=== PATIENT | male | born 1955 | race Caucasian/White ===

== ENCOUNTER 2024-10-21 11:35 | Outpatient (CLI) | payer MEDICARE, SELFPAY ==
--- NOTE | ~2024-10-21 | PE_ITS ---
EXAMINATION: PET_PETPSMAST_PT DATE: 10/21/2024 13:55 INDICATION: Prostate cancer TECHNIQUE: 5.246 mCi of Illucix Ga-68([id number]) was administered i.v. Low dose computed francheska graphy (CT) images were acquired from the base of the brain to the base of the brain to the proximal thighs for attenuation correction and anatomic localization. Positron emission tomography (PET) image s were acquired in the same distribution beginning 85 minutes after injection. Images including fused PET/CT images were reconstructed in axial, coronal, and sagittal planes. Automated exposure control technique was employed. The dose-length product was 02758.20mGy-cm. COMPARISON: None FINDINGS: Head/neck: Typical pattern of symmetric physiologic increased activity in the lacrimal, parotid and submandibula r glands as well as along the mucosa of the nasal and oral cavities, pharynx and hypopharynx. No path ologically enlarged cervical lymphadenopathy or suspicious foci of increased uptake in the visualized head or neck. Chest: Mild bibasilar atelectasis. No pulmonary nodules, pneumonia, pulmonary edema or pleural effusion. Hea rt size is normal. Atherosclerotic coronary artery calcification. No pericardial effusion. Thoracic a maureen is normal in caliber No pathologically enlarged or PSMA avid thoracic lymphadenopathy. lymphaden opathy. Abdomen/pelvis/proximal thighs: Physiologic renal accumulation and excretion of activity in the kidneys, bladder and along portions o f ureters. Photopenic defect associated with a 7 cm low-attenuation exophytic cyst at the lower pole the right kidney. There are mild uptake in the posterior prostate with maximal SUV of 4.1 on the righ t and left and 3.9 on the right. Normal degree and slightly heterogenous pattern of increased uptake throughout the liver and spleen without radiologic correlate or dominant PSMA avid lesion. The gallbl adder, pancreas and bilateral adrenal glands are normal. Moderate uptake scattered throughout the bow els with typical duodenal and proximal jejunal predominance and without radiologic correlate, also li ida physiologic. Normal appendix. Small fat-containing right inguinal hernia. No other abnormal foci of increased uptake or pathologically enlarged lymphadenopathy in the abdomen, pelvis or proximal th ighs. Musculoskeletal: Severe cervical and lumbar spondylosis and moderate thoracic spondylosis. No suspicious lytic, blasti c or abnormally PSMA avid bone lesions. IMPRESSION: 1. Mild uptake in the posterior prostate, left slightly greater than right consistent with prostate c ancer. No lesions suspicious for metastatic disease. Reviewed, dictated and finalized at location B. IMPRESSION: 1. Mild uptake in the posterior prostate, left slightly greater than right cons istent with prostate cancer. No lesions suspicious for metastatic disease.
--- OUTSIDE RECORDS SUMMARY | 2024-10-21 13:18 | XMS_ITS | Encounter Summary ---
Author Organization [facility] Healthcare Address [address] [place] [address] Care Team Providers Care Yard Specialist Name Role Phone Julius Pelayo MD Primary Care Provider [phone] Austen Natarajan NP Unavailable [phone] Encounter Details Date Type Department Care Team (Late st Contact Info) Description 08/31/2024 Results Follow-Up [facility] Gastroenterology at [address] [place] [address] Constantino Booth MD [address] [place] [address] [address] [place] [address] Social History Tobacco Use Types Packs/Day Years Used Date Smoking Tobacco: Never Smokeless Tobacco: Never Alcohol Use Standard Drinks/Week Comments Yes 0 (1 standard drink = 0.6 oz pur e alcohol) AUDIT-C Answer Date Recorded Q1: How often do you have a drink containing alc ohol? Monthly or less 08/24/2024 Average Number of Drinks Not on file 025 Frequency of Binge Drinking Not on file 08/15 PHQ-2 Answer Date Recorded PHQ-2 Total Score (If total score is 3 or more points, staff should administer the PHQ-9) 0 08/05/2024 Personal Safety Answer Date Recorded Have you ever been in or are you currently in a harmful physical or emotional relationship or is someone making you feel afraid or unsafe? 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
--- OUTSIDE RECORDS SUMMARY | 2024-10-21 13:18 | XMS_ITS | Clinical Summary ---
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 Gender Identity Not on file Sexual Orientation Not on file Plan of Treatment Health Maintenance Due Date Last Done Comments Hepatitis C Virus (HCV) Screening 1955 TdaP Immunization 1955 Colonoscopy 2001 Colorectal Cancer Screening 2001 Cologuard 2006 Immunochemical Fecal Occult Blood 2006 Pneumococcal Immunization (5 0+ years) (1 of 1 - PCV) 2006 Zoster Immunization (1 of 2) 2006 PSA Discussion 2011 Influenza Immunization (#1) 2024 SARS-COV-2 Immunization ( - 2023-25 season) 2024 Respiratory Syncytial Virus (RSV) Immunization (Adult) (1 - 1-dose 75+ series) 2031 Hepatitis B Immunization Aged Out No longer eligible based on patient's age to complete this topic Meningococcal Immunization (ACWY) Aged Out No longer eligible based on patient's age to complete this topic Rotavirus Immunization Aged Out No lo nger eligible based on patient's age to complete this topic
--- OUTSIDE RECORDS SUMMARY | 2024-10-21 13:18 | XMS_ITS | Clinical Summary ---
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 Brush Assembler Name Role Phone Julius Pelayo MD Primary Care Provider [phone] Austen Natarajan NP Unavailable [phone] Allergies No known active allergies Medications rivaroxaban (Xarelto) 20 mg tablet TAKE 1 TABLET BY MOUTH EVERY DAY 90 tablet 3 02/03/2024 Active carvediloL (COREG) 25 mg tablet TAKE 1 TABLET BY MOUTH TWICE A DAY WITH FOOD 180 tablet 3 05/22/2024 Active atorvastatin (LIPITOR) 80 mg tablet TAKE 1 TABLET BY MOUTH EVERY DAY 90 tablet 3 07/10/2024 Active Entresto 97-103 mg tablet TAKE 1 TABLET BY MOUTH TWICE A DAY 60 tablet 11 08/11/2024 Active Active Problems Problem Noted Date Diagnosed Date Elevated prostate specific antigen (PSA) 025 S/P total knee arthroplasty, right 08/05/2024 Assessment & Plan (08/05/2024 8:35 AM DATABASE ADMINISTRATION MANAGER): Continues to improved on ROM and will follow response. Prostate cancer screening 08/05/2024 Assessment & Plan (08/05/2024 8:36 AM DATABASE ADMINISTRATION MANAGER): Updating PSA. Reviewed Prostate anatomy. Encounter for hearing examination 08/05/2024 Assessment & Plan (08/05/2024 8:37 AM DATABASE ADMINISTRATION MANAGER): COntinues with hearing aids. No acute chagnes. Focus of exam is preventative in nature. Reviewed immunizations, reivewed sun/skin cancer screening. Reviewed colon/prostate cancer screening. Reveiwed aerobic exercise targets and goal of 150min/week aerobic exercise and will montior response./ BMI 39.0-39.9,adult 08/05/2024 Assessment & Plan (08/05/2024 8:36 AM DATABASE ADMINISTRATION MANAGER): Encourage 150min/week aerobic exericse. Healthy food choices. Encounter for screening colonoscopy 2024 Arthritis of knee 06/12/2022 Encounter for pre-operative examination 06/06/20 Assessment & Plan (06/06/2022 10:01 AM DATABASE ADMINISTRATION MANAGER): Reviewed labs, and EKG. Patient cleared for upcoming surgery on 06/12/22. Cleared by cooper apprentice, Dr. Smith. Patient to hold xarelto x 2 days before surgery. Primary osteoarthritis of right knee 05/10/2022 Overview (05/10/2022): Added automatically from request for surgery [id number] Chronic atrial fibrillation 02/20/2022 Assessment & Plan (08/05/2024 8:35 AM DATABASE ADMINISTRATION MANAGER): Continues on xarelto and carvedilol and will monitor ersponse. Assessment & Plan (06/06/2022 10:02 AM DATABASE ADMINISTRATION MANAGER): Rate controlled. Continues BB and xarelto. Dilated cardiomyopathy 02/20/2022 Assessment & Plan (06/06/2022 10:03 AM DATABASE ADMINISTRATION MANAGER): Stable on current medication regimen. Following with cardiology. Coronary artery disease invo lving [place] coronary artery of [place] heart without angina pectoris 02/20/2022 Assessment & Plan (06/06/2022 10:03 AM DATABASE ADMINISTRATION MANAGER): Results for orders placed or performed in visit on 06/06/22 POCT lipid panel Result Value Ref Range Cholesterol, POC 100 mg/dL HDL, POC 30 mg/dL Triglycerides, POC 78 mg/dL LDL, Direct, POC 54.4 mg/dL Chol/HDL Ratio, POC 1.81 Non-HDL Cholesterol, POC 70 mg/dL Cholesterol Total, POC 100 mg/dL Denies any chest pain. Reviewed cholesterol with patient. Continue atorvastatin 80 mg daily. JIMBO on CPAP 02/20/2022 Assessment & Plan (08/05/2024 8:35 AM DATABASE ADMINISTRATION MANAGER): Continues to benefit from ngihtly positive pressure therapy. WIll continue to follow response. Assessment & Plan (06/06/2022 10:02 AM DATABASE ADMINISTRATION MANAGER): Nightly CPAP use. Hypertensive heart disease with heart failure Assessment & Plan (08/05/2024 8:36 AM DATABASE ADMINISTRATION MANAGER): COntinue on xarelto and entresto. No BOND. Normalization of ECho. NO side effects to entresto. Class 2 severe obesity due t o excess calories with serious comorbidity and body mass index (BMI) of 39.0 to 39.9 in adult 07/25/2021 Preoperative testing 06/13/2021 Overview (06/13/2021): Added automatically from request for surgery [id number] BOND (dyspnea on exertion) 06/13/2021 Overview (06/15/2021): Added automatically from request for surgery [id number] Hyperlipidemia 06/13/2021 Overview (06/15/2021): Added automatically from request for surgery [id number] Assessment & Plan (08/05/2024 8:35 AM DATABASE ADMINISTRATION MANAGER): Stable on high intenstiy statin therapy with atorvastatin. Abnormal glucose 06/01/2021 LV dysfunction 06/01/2021 Assessment & Plan (06/01/2021 9:08 AM DATABASE ADMINISTRATION MANAGER): Patient's symptoms are suspicious for angina and in the setting of LV dysfunction we need to definitively define coronary anatomy. I have initiated systolic CHF therapies and will check proBNP value as well as his electrocardiogram and metabolic panel. We discussed risks benefits and alternatives to coronary angiography, patient and his understand and is willing to proceed. I have discussed changing his lisinopril hydrochlorothiazide for his hypertension to Entresto escalating doses to 97/101 b.i.d. and have added carvedilol 12.5 mg b.i.d. to his medical regimen. He will take baby aspirin until his angiogram is completed. Hypertension 11/28/2013 Overview (10/20/2016): HYPERTENSION NOS Assessment & Plan (08/05/2024 8:35 AM DATABASE ADMINISTRATION MANAGER): Stable on carvedilol and entresto. No side effects noted to medication. Encounters Date Type Department Care Team Description 10/08/2024 9:45 AM CDT - 10/08/2024 10:45 AM CDT Surgery [facility] Operating Room [address] [place] [address] Alonzo Hensley MD URONAV GUIDED PROSTATE BIOPSY 10/08/2024 9:21 AM CDT Anesthesia Event [facility] Operating Room [address] [place] [address] Tr Graves MD Reynolds, Ethan Emerson, MD 10/08/2024 6:59 AM CDT - 10/08/2024 12:11 PM CDT Hospital Encounter [facility] Operating Room [address] [place] [address] Alonzo Hensley MD Elevated prostate specific antigen (PSA) Discharge Disposition: Discharge to home or self care 10/07/2024 8:15 AM CDT Office Visit [facility] [address] [place] [address] Marsha Chauhan NP Chronic atrial fibrillation (HCC) (Primary Dx); Coronary artery disease involving [place] coronary artery of [place] heart without angina pectoris; JIMBO on CPAP; Thoracic aortic aneurysm (TAA), unspecified part, unspecified whether ruptured 09/11/2024 7:58 AM DATABASE ADMINISTRATION MANAGER - 09/11/2024 11:59 PM DATABASE ADMINISTRATION MANAGER Hospital Encounter [facility] Imaging Center [address] [place] [address] Aneurysm of ascending aorta without rupture Discharge Disposition: Discharge to home or self care 09/11/2024 7:58 AM DATABASE ADMINISTRATION MANAGER - 09/11/2024 11:59 PM DATABASE ADMINISTRATION MANAGER Hospital Encounter [facility] Cardiology [address] [place] [id number] Chronic atrial fibrillation (HCC) Discharge Disposition: Discharge to home or self care 09/10/2024 Telephone [facility] [address] [place] [id number] Alyson, Tracee Titus. 08/31/2024 Results Follow-Up [facility] at [address] [place] [address] Constantino Booth MD 08/25/2024 9:30 AM DATABASE ADMINISTRATION MANAGER - 08/25/2024 10:00 AM DATABASE ADMINISTRATION MANAGER Surgery [address] [address] Constantino Booth MD COLON REMOVAL SNARE 08/25/2024 9:02 AM DATABASE ADMINISTRATION MANAGER Anesthesia Event [address] [address] Emeka Wang MD 08/25/2024 7:56 AM DATABASE ADMINISTRATION MANAGER - 08/25/2024 10:23 AM DATABASE ADMINISTRATION MANAGER Hospital Encounter [address] [address] Constantino Booth MD Encounter for screening colonoscopy Discharge Disposition: Discharge to home or self care 08/10/2024 Orders Only [facility] [address] [address] Julius Pelayo MD Elevated PSA (Primary Dx) 08/05/2024 8:35 AM DATABASE ADMINISTRATION MANAGER Lab [facility] Laboratory [address] [place] [phone] Prostate cancer screening 08/05/2024 8:00 AM DATABASE ADMINISTRATION MANAGER Office Visit [facility] [address] [address] Julius Pelayo MD Annual physical exam (Primary Dx); Prostate cancer screening; JIMBO on CPAP; Mixed hyperlipidemia; Primary hypertension; Chronic atrial fibrillation (HCC); S/P total knee arthroplasty, right; BMI 39.0-39.9,adult; Severe obesity (BMI 35.0-39.9) with comorbidity (HCC); Hypertensive heart disease with heart failure (HCC) 07/30/2024 8:10 AM DATABASE ADMINISTRATION MANAGER Lab [facility] [address] [place] [address] Encounter for hearing examination, unspecified whether abnormal findings from Last 3 Months Immunizations Immunization Administration Dates Next Due Influenza, Quadrivalent, Hig h Dose, Preservative Free, Intrr 06/06/2022 Influenza, Unspecified 06/06/2022(Deferr ed: Patient Refused),07/25/2021(Deferred: Patient Refused),04/14/2021(Deferred: Patient Refused),03/15/2021(Deferred: Patient Refused),07/13/2020(Deferred: Patient Refused),07/15/2019(Deferred: Patient Refused),07/13/2019(Deferred: Patient Refused),07/15/2018(Deferred: Patient Refused) Moderna SARS-CoV-2 Monovalen t Vaccination (12+ YRS) 07/04/2021 Tdap 04/18/2018,04/08/2012 Surgical History Surgery Date Site/Laterality Comments CARDIAC CATHETERIZATION KNEE ARTHROSCOPY Right COLONOSCOPY 08/25/2024 1st Medical History Medical History Date Comments Hypertension Hypertension Arrhythmia A fib Sleep apnea Hyperlipidemia Family History Medical History Relation Name Comments Heart attack Father Heart disease Father Hypertension Father Other Father Diabetes type 2 , HTN.; Peripheral vascular disease Father Peripheral vascular disease; Cancer Mother Heart disease Mother Relation Name Status Comments Father Mother Alive Social History Tobacco Use Types Packs/Day Years Used Date Smoking Tobacco: Never Smokeless Tobacco: Never Tobacco Cessation:Counseling Given: Not Answered Alcohol Use Standard Drinks/Week Comments Yes 0 (1 standard drink = 0.6 oz pur e alcohol) AUDIT-C Answer Date Recorded Q1: How often do you have a drink containing alcohol? Monthly or less 10/01/2024 Q2: How many drinks containi ng alcohol do you have on a typical day when you are drinking? Patient does not drink Frequency of Binge Drinking Not on file 09/13 PHQ-2 Answer Date Recorded PHQ-2 Total Score (If total score is 3 or more points, staff should administer the PHQ-9) 0 08/05/2024 Personal Safety Answer Date Recorded Have you ever been in or are you currently in a harmful physical or emotional relationship or is someone making you feel afraid or unsafe? Denies 10/08/2024 Sex and Gender Information Value Date Recorded Sex Assigned at Not on file Legal Sex Male 2:00 PM DATABASE ADMINISTRATION MANAGER Gender Identity Not on file Sexual Orientation Not on file Obstetrics History Last Filed Vital Signs Vital Sign Reading Time Taken Comments Blood Pressure 149/89 10/08/2024 11:59 AM CDT Pulse 79 10/08/2024 11:59 AM CDT Temperature 35.7 C (96.3 F) 10/08/2024 11:59 AM CDT Respiratory Rate 20 10/08/2024 11:5 9 AM CDT Oxygen Saturation 100% 10/08/2024 11: 59 AM CDT Inhaled Oxygen Concentration - - Weight 127.1 kg (280 lb 3.3 oz) 10/08/2024 7:33 AM CDT Height 182.9 cm (6') 10/08/2024 7:33 AM CDT Body Mass Index 38 10/08/2024 7:33 AM CDT Plan of Treatment Health Maintenance Due Date Last Done Comments Hepatitis C Screening 1955 Hepatitis B Screening 1974 Pneumococcal vaccine 65+ (1 of 2 - PCV) 1975 Zoster Vaccine (1 of 2) 2006 Covid-19 Vaccine (4 - 2023-2 5 season) 2024 07/04/2021, 10/04/2020, 08/24/2020 Depression Screening 08/05/2025 08/05/2024, 08/02/2023, 07/30/2022, Additional history exists Well Visit 65+ 08/05/2025 08/05/2024, 07/15, 07/30/2022, Additional history exists Fall Risk Assessment 10/08/2025 10/08/2024, 08/05/2024, 08/02/2023, Additional history exists Prostate Cancer Screening-PSA 08/05/2026, 07/30/2023, 07/30/2022, Additional history exists DTaP/Tdap/Td Vaccine (3 - Td or Tdap) 04/18/2028 04/18/2018, 04/08/2012 Influenza Vaccine Discontinued 06/06/2022 Colon Cancer Screening-CT Colonography Discontinued 08/25/2024 Colon Cancer Screening-Colonoscopy Discontinued 08/25/2024 Colon Cancer Screening-DNA Stool Discontinued 08/25/19 Colon Cancer Screening-FIT Discontinued 08/25/2024 Colon Cancer Screening-Sigmoidoscopy Discontinued 08/25/2024 Medical Devices Implanted Type Area Vehicle And Equipment Cleaner Device Identifier Shelf Expiration Date Model / Serial / Lot TrackIF/[employer] [id number] Angio-Seal Evolution 6fr .035in Guidewire Bypass Tube Suture - [id number] Implanted:Qty: 1 on 06/16/2021 by Ko Smith MD at [facility] [employer] 12/12/2021 [id number] / / [id number] [employer] Cement Bone Simplex Gentamicin High Viscosity 40gm 6195-1-001 - [id number] Implanted:Qty: 1 on 06/12/2022 by Ronald Back MD at [facility] Right: Knee [employer] [id number] 10/13/2023 6195-1-001 / / [id number] [employer] Attune S+ Cement Fix Bearing Knee 8 Baseplate Tibial [id number] - [id number] Implanted:Qty: 1 on 06/12/2022 by Ronald Back MD at [facility] Right: Knee [employer] [id number] 02/12/2032 [id number] / / [id number] [employer] Attune Cruciate Retain Cementless Knee Right 9 Component Femoral [id number] - [id number] Implanted:Qty: 1 on 06/12/2022 by Ronald Back MD at [facility] Right: Knee [employer] [id number] 08/14/2029 [id number] / / [id number] [employer] Attune 10mm Cruciate Retaining Fix Bearing Knee 9 Insert Tibial [id number] - [id number] Implanted:Qty: 1 on 06/12/2022 by Ronald Back MD at [facility] Right: Knee [employer] [id number] 08/14/2022 [id number] / / [id number] Procedures Procedure Name Priority Date/Time Associated Diagnosis Comments SURGICAL PATHOLOGY Routine 10/08/2024 10 :13 AM CDT Elevated prostate specific antigen (PSA) URONAV GUIDED PROSTATE BIOPSY 10/08/2024 9:21 AM CDT Elevated prostate specific antigen (PSA) ECG 12-LEAD STAT 10/08/2024 7:[address] CHEST WO CONTRAST Schedule Routine, Read Routine (OP Routine) 09/11/2024 9:03 AM DATABASE ADMINISTRATION MANAGER Aneurysm of ascending aorta without rupture TRANSTHORACIC ECHO (TTE) COMPLETE W DOPPLER/CF WO CONTRAST Routine 09/11/2024 8:42 AM DATABASE ADMINISTRATION MANAGER Chronic atrial fibrillation (HCC) SURGICAL PATHOLOGY STAT 08/25/2024 3: 00 PM DATABASE ADMINISTRATION MANAGER Encounter for screening colonoscopy COLON REMOVAL SNARE 08/25/2024 8 :57 AM DATABASE ADMINISTRATION MANAGER Encounter for screening colonoscopy COLONOSCOPY 08/25/2024 8:12 AM DATABASE ADMINISTRATION MANAGER PSA SCREEN Routine 08/05/2024 8:34 AM DATABASE ADMINISTRATION MANAGER Prostate cancer screening EGFR Routine 07/30/2024 8:17 AM DATABASE ADMINISTRATION MANAGER Encounter for hearing examination, unspecified whether abnormal findings DIFFERENTIAL AUTO Routine 07/30/2024 8:1 7 AM DATABASE ADMINISTRATION MANAGER Encounter for hearing examination, unspecified whether abnormal findings CBC WITH AUTO DIFFERENTIAL Routine 07/30/2024 8:17 AM DATABASE ADMINISTRATION MANAGER Encounter for hearing examination, unspecified whether abnormal findings COMPREHENSIVE METABOLIC PANEL Routine 07/30/2024 8:17 AM DATABASE ADMINISTRATION MANAGER Encounter for hearing examination, unspecified whether abnormal findings LIPID PANEL Routine 07/30/2024 8:17 AM DATABASE ADMINISTRATION MANAGER Encounter for hearing examination, unspecified whether abnormal findings from Last 3 Months Results * Surgical pathology (10/08/2024 10:13 AM CDT) Tissue specimen (specimen) (Prostate, Needle Biopsy) 10/08/2024 9:03 AM CDT Tissue specimen (specimen) (Prostate, Needle Biopsy) 10/08/2024 9:03 AM CDT Tissue specimen (specimen) (Prostate, Needle Biopsy) 10/08/2024 9:03 AM CDT Tissue specimen (specimen) (Prostate, Needle Biopsy) 10/08/2024 9:03 AM CDT Tissue specimen (specimen) (Prostate, Needle Biopsy) 10/08/2024 9:03 AM CDT Tissue specimen (specimen) (Prostate, Needle Biopsy) 10/08/2024 9:03 AM CDT Tissue specimen (specimen) (Prostate, Needle Biopsy) 10/08/2024 9:03 AM CDT Tissue specimen (specimen) (Prostate, Needle Biopsy) 10/08/2024 9:03 AM CDT Tissue specimen (specimen) (Prostate, Needle Biopsy) 10/08/2024 9:03 AM CDT Tissue specimen (specimen) (Prostate, Needle Biopsy) 10/08/2024 9:03 AM CDT Tissue specimen (specimen) (Prostate, Needle Biopsy) 10/08/2024 9:03 AM CDT Tissue specimen (specimen) (Prostate, Needle Biopsy) 10/08/2024 9:03 AM CDT Tissue specimen (specimen) (Prostate, Needle Biopsy) 10/08/2024 9:06 AM CDT Tissue specimen (specimen) (Prostate, Needle Biopsy) 10/08/2024 9:07 AM CDT Narrative PATHOLOGY [facility] ([facility]) - 10/13/2024 8:53 AM CDT EPIC results best viewed via link to PDF [facility] Department of Pathology [address] [place], [place] [id number] Note to Patients: This report may contain a detailed description of human tissue sent by a health care provider to the laboratory for pathologic evaluation. The content of this report is essential for diagnosis and may provide important critical findings. This information may be unfamiliar to patients to review without a medical professional present. It is advised that the patient review this report in the presence of a health care provider who can answer questions and explain the details. Final Report Patient Name: RAO SANCHEZ Address: [address] [place] [id number] Gender: M : 1955 (Age: 69) Service: Surgery Location: [facility] Hospital #: [id number] Patient Type: [facility] Taken: 10/08/2024 Received: 10/09/2024 Accessioned: 10/09/2024 Reported: 10/13/2024 Physician(s):Alonzo Hensley M.D. Diagnosis: A. Prostate, right lateral base, biopsy: - Focal atypical glands. B. Prostate, right medial base, biopsy: - Adenocarcinoma, Galt score 7 (3+4), 10% Pattern 4, Grade group 2, involving 1 of 1 core, measuring 4 mm in combined dimension, 30% of total biopsy tissue. C. Prostate, right lateral mid, biopsy: - Benign prostatic tissue. D. Prostate, right medial mid, biopsy: - Adenocarcinoma, Galt score 6 (3+3), Grade group 1, involving 1 of 2 cores, measuring 2 mm in combined dimension, 10% of total biopsy tissue. E. Prostate, right lateral apex, biopsy: - Adenocarcinoma, Galt score 7 (3+4), 10% Pattern 4, Grade group 2, involving 2 of 2 cores, measuring 6 mm in combined dimension, 30% of total biopsy tissue. F. Prostate, right medial apex, biopsy: - Adenocarcinoma, Galt score 7 (3+4), 10% Pattern 4, Grade group 2, involving 1 of 1 core, measuring 4 mm in combined dimension, 40% of total biopsy tissue. G. Prostate, left lateral base, biopsy: - Benign prostatic tissue. H. Prostate, left medial base, biopsy: - Adenocarcinoma, Galt score 7 (4+3), 70% Pattern 4, Grade group 3, involving 1 of 1 core, measuring 2 mm in combined dimension, 15% of total biopsy tissue. I. Prostate, left lateral mid, biopsy: - Adenocarcinoma, Amelie score 7 (4+3), 70% Pattern 4, Grade group 3, involving 1 of 1 core, measuring 1 mm in combined dimension, 10% of total biopsy tissue. J. Prostate, left medial mid, biopsy: - Adenocarcinoma, Amelie score 6 (3+3), Grade group 1, involving 1 of 1 core, measuring 1 mm in combined dimension, 10% of total biopsy tissue. K. Prostate, left lateral apex, biopsy: - Adenocarcinoma, Galt score 6 (3+3), Grade group 1, involving 1 of 1 core, measuring 1 mm in combined dimension, 10% of total biopsy tissue. L. Prostate, left medial apex, biopsy: - Adenocarcinoma, Amelie score 7 (3+4), 40% Pattern 4, Grade group 2, involving 1 of 1 core, measuring 5 mm in combined dimension, 50% of total biopsy tissue. M. Prostate, region of interest #1, biopsy: - Benign prostatic tissue. N. Prostate, region of interest #2, biopsy: - Adenocarcinoma, Amelie score 7 (4+3), 60% Pattern 4, Grade group 3, involving 3 of 5 cores, measuring 6 mm in combined dimension, 20% of total biopsy tissue. Chaitanya Burrell M.D. Report Electronically Reviewed and Signed Out By Chaitanya Burrell M.D. 10/13/2024 08:53:45 Specimen(s) Received: A: Right lateral base B: Right medial base C: Right lateral mid D: Right medial mid E: Right lateral apex F: Right medial apex G: Left lateral base H: Left medial base I: Left lateral mid J: Left medial mid K: Left lateral apex L: Left medial apex M: Prostate biopsy - region of interest one N: Prostate biopsy - region of interest two Microscopic Description: In order to further assess for invasive carcinoma, a PIN4 immunohistochemical stain was performed with adequate controls on blocks A, B, D, E, F, K, M, and N and shows loss of the myoepithelial cell layer with overexpression of AMACR in the areas of invasive carcinoma. Clinical History: Elevated PSA. Uronav guided prostate biopsy. Gross Description: The specimen is submitted in fourteen containers labeled RAO SANCHEZ . A. The first container is labeled right lateral base . Received is a rodriguez needle core, 1.2 cm in length, submitted as A. B. The second container is labeled right medial base . Received is a rodriguez needle core, 1.6 cm in length, submitted as B. C. The third container is labeled right lateral mid . Received is a rodriguez needle core, 1.4 cm in length, submitted as C. D. The fourth container is labeled right medial mid . Received are 2 pale needle cores, 1.1 and 1.6 cm in length, submitted as D. E. The fifth container is labeled right lateral apex . Received are 2 rodriguez needle cores, 1.1 and 1.2 cm in length by 0.1 cm in diameter, submitted as E. F. The sixth container is labeled right medial apex . Received is a rodriguez needle core, 1.5 cm in length, submitted as F. G. The seventh container is labeled left lateral base . Received is a rodriguez needle core, 2.3 cm in length, submitted as G. H. The eighth container is labeled left medial base . Received is a pale needle core, 2.1 cm in length, submitted as H. I. The ninth container is labeled left lateral mid . Received is a rodriguez needle core, 1.1 cm in length, submitted as I. J. The tenth container is labeled left medial mid . Received is a rodriguez needle core, 1.2 cm in length, submitted as J. K. The eleventh container is labeled left lateral apex . Received is a pale needle core, 0.8 cm in length, submitted as K. L. The twelfth container is labeled left medial apex . Received is a rodriguez needle core, 2.0 cm in length, submitted as L. M. The thirteenth container is labeled prostate biopsy-region of interest 1 . Received are four rodriguez needle cores, 1.2-1.9 cm in length, submitted as M. N. The fourteenth container is labeled prostate biopsy-region of interest 2 . Received are 5 needle cores, 1.9-2.7 cm in length, submitted as N. Elliott Cunningham/Estefani Cruz M.D. REPORT IMAGES AND SCANNED DOCUMENTS, IF INCLUDED, ONLY VIEWABLE IN PDF VERSION OF REPORT The performance characteristics of some immunohistochemical stains, fluorescence in-situ hybridization tests and immunophenotyping by flow cytometry cited in this report (if any) were determined by the Surgical Pathology Department at [facility] as part of an ongoing supplier quality engineering manager program and in compliance with federally mandated regulations drawn from the Clinical Laboratory Improvement Act of 1988 (CLIA '88). Some of these tests rely on the use of analyte specific reagents and are subject to specific labeling requirements by the US Food and Drug Administration. Such diagnostic tests may only be performed in a facility that is certified by the Department of Health and Human Services as a high complexity laboratory under CLIA '88. The FDA has determined that such clearance or approval is not necessary. This test is used for clinical purposes. It should not be regarded as investigational or for research. Nevertheless, federal rules concerning the medical use of analyte specific reagents require that the following disclaimer be attached to the report: This test was developed and its performance characteristics determined by the Surgical Pathology Department [facility]. It has not been cleared or approved by the U. S. Food and Drug Administration. Note for decalcified specimens: This assay has not been validated on decalcified tissues. Results should be interpreted with caution given the possibility of false negativity on decalcified specimens Alonzo Hensley MD LAB PATHOLOGY ORDERA BLES Final Result PATHOLOGY [facility] ([place]) [address] [place] [address] * CT Chest WO Contrast (09/11/2024 9:03 AM DATABASE ADMINISTRATION MANAGER) Anatomical Region Laterality Modality Body N/A Computed Tomogra phy 09/16/2024 2:09 AM DATABASE ADMINISTRATION MANAGER Narrative 09/16/2024 2:24 AM DATABASE ADMINISTRATION MANAGER EXAM DESCRIPTION: CT CHEST WO CONTRAST REASON FOR STUDY: Aortic aneurysm suspected Follow up aortic aneurysm, no current complaints, non smoker TECHNIQUE: CT scan of the chest performed without intravenous contrast using helical scanning technique. Reconstructed coronal and sagittal MPR images reviewed. All images stored on PACS. Automated exposure control was used as a dose optimization technique for this examination. COMPARISON: 09/04/2023 FINDINGS: The sensitivity for detection of solid visceral lesions is diminished without the use of intravenous contrast. LUNGS: No suspicious nodules or masses. No pneumonia. Unchanged 0.4 cm left lower lobe pulmonary nodule (image 53). No new suspicious pulmonary nodules. PLEURA: No effusion. No pneumothorax. MEDIASTINUM/YARITZA: No identified masses or abnormal nodes. HEART: Heart size is normal with no pericardial effusion. CORONARY ARTERY CALCIFICATION: Moderate to severe calcified athero scleroses of the coronary arteries compatible multi-vessel coronary artery disease. VASCULATURE: Unchanged, 4.1 cm minimally aneurysmal ascending thoracic aortic aneurysm. Mild calcified athero scleroses of the thoracic aorta. The descending thoracic aorta is tortuous. AXILLA: No lymphadenopathy. Unchanged prominent bilateral axillary lymph nodes, likely reactive. CHEST WALL: Interval increased right posterior chest wall subcutaneous soft tissue density (image 58) measures 0.8 cm, previously 0.5 cm. Unchanged right posterolateral subcutaneous chest wall fat containing mass measuring 8.6 x 3.0 cm, likely a benign lipoma. HARDWARE/LINES/TUBES: None. UPPER ABDOMEN: No significant abnormality. MUSCULOSKELETAL: No significant abnormality. OTHER: No other significant abnormality. IMPRESSION: Unchanged, 4.1 cm minimally aneurysmal ascending thoracic aortic aneurysm. Unchanged, 0.4 cm left lower lobe solid noncalcified pulmonary nodule, likely benign. Interval increased right posterior chest wall subcutaneous soft tissue density measures 0.8 cm, previously 0.5 cm, possibly enlarging sebaceous cyst. Recommend clinical correlation. Follow-up ultrasound may prove helpful for further evaluation if clinically desired. Unchanged, right posterolateral subcutaneous chest wall fat containing mass measuring 8.6 x 3.0 cm, likely a benign lipoma. THIS IS AN ELECTRONICALLY VERIFIED FINAL REPORT 09/16/2024 2:24 AM - Electronically signed by Michael Mabry M.D. BB: YTLER Report ID: [id number] Reading Location: [place] [address] Procedure Note Michael Mabry MD PhD - 09/16/2024 EXAM DESCRIPTION: CT CHEST WO CONTRAST REASON FOR STUDY: Aortic aneurysm suspected Follow up aortic aneurysm, no current complaints, non smoker TECHNIQUE: CT scan of the chest performed without intravenous contrastusing helical scanning technique. Reconstructed coronal and sagittal MPR images reviewed. All images stored on PACS. Automated exposure control was usedas a dose optimization technique for this examination. COMPARISON: 09/04/2023 FINDINGS: The sensitivity for detection of solid visceral lesions is diminishedwithout the use of intravenous contrast. LUNGS: No suspicious nodules or masses. No pneumonia. Unchanged 0.4 cm left lower lobe pulmonary nodule (image 53). No new suspicious pulmonary nodules. PLEURA: No effusion. No pneumothorax. MEDIASTINUM/YARITZA: No identified masses or abnormal nodes. HEART: Heart size is normal with no pericardial effusion. CORONARY ARTERY CALCIFICATION: Moderate to severe calcified atheroscleroses of the coronary arteries compatible multi-vessel coronary artery disease. VASCULATURE: Unchanged, 4.1 cm minimally aneurysmal ascending thoracic aortic aneurysm. Mild calcified athero scleroses of the thoracic aorta.The descending thoracic aorta is tortuous. AXILLA: No lymphadenopathy. Unchanged prominent bilateral axillarylymph nodes, likely reactive. CHEST WALL: Interval increased right posterior chest wall subcutaneoussoft tissue density (image 58) measures 0.8 cm, previously 0.5 cm. Unchangedright posterolateral subcutaneous chest wall fat containing mass measuring 8.6 x3.0 cm, likely a benign lipoma. HARDWARE/LINES/TUBES: None. UPPER ABDOMEN: No significant abnormality. MUSCULOSKELETAL: No significant abnormality. OTHER: No other significant abnormality. IMPRESSION: Unchanged, 4.1 cm minimally aneurysmal ascending thoracic aorticaneurysm. Unchanged, 0.4 cm left lower lobe solid noncalcified pulmonary nodule,likely benign. Interval increased right posterior chest wall subcutaneous soft tissue density measures 0.8 cm, previously 0.5 cm, possibly enlarging sebaceouscyst. Recommend clinical correlation. Follow-up ultrasound may prove helpfulfor further evaluation if clinically desired. Unchanged, right posterolateral subcutaneous chest wall fat containingmass measuring 8.6 x 3.0 cm, likely a benign lipoma. THIS IS AN ELECTRONICALLY VERIFIED FINAL REPORT 09/16/2024 2:24 AM - Electronically signed by Michael Mabry M.D. BB: TYLER Report ID: [id number] Reading Location: [id number] us Ko Smith MD IMG CT PROCEDURES Final Result * TRANSTHORACIC ECHO (TTE) COMPLETE W DOPPLER/CF WO CONTRAST (09/11/2024 8:42 AM DATABASE ADMINISTRATION MANAGER) LV EF 70-75 % CONS SCIMAGE Anatomical Region Laterality Modality Ultrasound 09/11/2024 8:10 AM DATABASE ADMINISTRATION MANAGER Narrative 09/11/2024 11:22 AM DATABASE ADMINISTRATION MANAGER [address] [address] Echocardiogram Report Patient Name: RAO SANCHEZ : 1955 Study Date: 09/11/2024 8:10:43 AM Gender: M Tech: IMPROVEMENT COORDINATOR Location: Echo Lab 1 Ref Provider: KO SMITH Height(Cm): 183 BSA: 2.54 Weight(Kg): 127 Quality: Adequate Order Provider: KO SMITH PROCEDURES: Echocardiographic Report: Transthoracic echocardiogram with complete 2D, M-Mode, and color Doppler examination. INDICATIONS: I48.20 Chronic atrial fibrillation, unspecified. MEASUREMENTS: 2D/MM Value Range Doppler Value Range EF Teich MM 52.0 % [ 52.0 - 72.0 ] ARYAN Vmax 2.42 cm2 Estimated EF 70-75 % AV Mean PG 4 mmHg LVIDd MM 3.40 cm [ 4.20 - 5.80 ] AV Peak Ubaldo 1.34 m/s [ 1.00 - 1.70 ] LVIDs MM 2.50 cm [ 2.50 - 4.00 ] AV VTI 26.67 cm LVPWd MM 1.40 cm [ 0.60 - 1.00 ] LVOT Diam 2.27 cm IVSd MM 1.30 cm [ 0.60 - 1.00 ] LVOT Peak Ubaldo 0.81 m/s [ 0.70 - 1.10 ] LA Dimension MM 2.93 cm [ 3.00 - 4.00 ] LVOT VTI 15.62 cm AoR Diam MM 3.13 cm [ 3.10 - 3.70 ] MV E Peak Ubaldo 0.91 m/s [ 0.60 - 1.30 ] ACS MM 2.14 cm [ 1.50 - 2.60 ] MV A Peak Ubaldo 0.33 m/s [ 1.00 - 1.20 ] MV Decel Time 114 msec [ 104 - 258 ] PV Peak Ubaldo 0.60 m/s [ 0.40 - 0.80 ] TR Peak Ubaldo 2.45 m/s [ 1.00 - 2.80 ] TR Peak PG 24 mmHg E` 0.12 m/s 2D/MM Value Range Doppler Value Range - FINDINGS: Atrial Septum: Normal atrial septum. Left Ventricle: Mild concentric left ventricular hypertrophy. Normal global left ventricular systolic function. Ejection Fraction is estimated to be 70-75 %. Left Atrium: There is mild enlargement of left atrium. Right Ventricle: Normal right ventricular size. Normal right ventricular systolic function. Right Atrium: There is mild enlargement of right atrium. Aortic Valve: Normal structure of the aortic valve. Mitral Valve: Mild mitral valve regurgitation. Pulmonic Valve: Normal structure of the pulmonic valve. Tricuspid Valve: Normal right ventricular systolic pressure. Estimated peak RVSP is 35 mmHg. Mild tricuspid regurgitation. Pericardium: Normal pericardium with no significant pericardial effusion. Aorta: Normal aortic root. Sinus of Valsalva is normal. Aortic arch is normal. Descending aorta is normal. IVC: Normal size and normal respiratory collapse consistent with normal right atrial pressure (<5 mmHg). Pulmonary Artery: Normal pulmonary artery size. CONCLUSIONS: Mild concentric left ventricular hypertrophy. Normal global left ventricular systolic function. Ejection Fraction is estimated to be 70-75 %. There is mild enlargement of left atrium. There is mild enlargement of right atrium. Mild mitral valve regurgitation. Normal right ventricular systolic pressure. Estimated peak RVSP is 35 mmHg. Mild tricuspid regurgitation . Atrial fibrillation. Technically difficult study with suboptimal views. Electronically Signed By: Ko Smith MD 09/11/2024 11:22:09 AM DATABASE ADMINISTRATION MANAGER Procedure Note Ko Smith MD - 09/11/[address] [address] Echocardiogram Report Patient Name: RAO SANCHEZ : 1955 Study Date: 09/11/2024 8:10:43 AM Gender: M Tech: IMPROVEMENT COORDINATOR Location: Echo Lab 1 Ref Provider: KO SMITH Height(Cm): 183 BSA: 2.54 Weight(Kg): 127 Quality: Adequate Order Provider: KO SMITH PROCEDURES: Echocardiographic Report: Transthoracic echocardiogram with complete 2D, M-Mode, and color Dopplerexamination. INDICATIONS: I48.20 Chronic atrial fibrillation, unspecified. MEASUREMENTS: 2D/MM Value Range Doppler ValueRange EF Teich MM 52.0 % [ 52.0 - 72.0 ] ARYAN Vmax 2.42cm2 Estimated EF 70-75 % AV Mean PG 4 mmHg LVIDd MM 3.40 cm [ 4.20 - 5.80 ] AV Peak Ubaldo 1.34 m/s[ 1.00 - 1.70 ] LVIDs MM 2.50 cm [ 2.50 - 4.00 ] AV VTI 26.67cm LVPWd MM 1.40 cm [ 0.60 - 1.00 ] LVOT Diam 2.27cm IVSd MM 1.30 cm [ 0.60 - 1.00 ] LVOT Peak Ubaldo 0.81 m/s[ 0.70 - 1.10 ] LA Dimension MM 2.93 cm [ 3.00 - 4.00 ] LVOT VTI 15.62cm AoR Diam MM 3.13 cm [ 3.10 - 3.70 ] MV E Peak Ubaldo 0.91 m/s[ 0.60 - 1.30 ] ACS MM 2.14 cm [ 1.50 - 2.60 ] MV A Peak Ubaldo 0.33 m/s[ 1.00 - 1.20 ] MV Decel Time 114 msec [ 104 - 258 ] PV Peak Ubaldo 0.60 m/s [ 0.40 - 0.80 ] TR Peak Ubaldo 2.45 m/s [ 1.00 - 2.80 ] TR Peak PG 24 mmHg E` 0.12 m/s 2D/MM Value Range Doppler ValueRange - FINDINGS: Atrial Septum: Normal atrial septum. Left Ventricle: Mild concentric left ventricular hypertrophy. Normal global leftventricular systolic function. Ejection Fraction is estimated to be 70-75 %. Left Atrium: There is mild enlargement of left atrium. Right Ventricle: Normal right ventricular size. Normal right ventricular systolicfunction. Right Atrium: There is mild enlargement of right atrium. Aortic Valve: Normal structure of the aortic valve. Mitral Valve: Mild mitral valve regurgitation. Pulmonic Valve: Normal structure of the pulmonic valve. Tricuspid Valve: Normal right ventricular systolic pressure. Estimated peak RVSP is 35mmHg. Mild tricuspid regurgitation. Pericardium: Normal pericardium with no significant pericardial effusion. Aorta: Normal aortic root. Sinus of Valsalva is normal. Aortic arch is normal.Descending aorta is normal. IVC: Normal size and normal respiratory collapse consistent with normal rightatrial pressure (<5 mmHg). Pulmonary Artery: Normal pulmonary artery size. CONCLUSIONS: Mild concentric left ventricular hypertrophy. Normal global leftventricular systolic function. Ejection Fraction is estimated to be 70-75 %. There is mild enlargement of left atrium. There is mild enlargement of right atrium. Mild mitral valve regurgitation. Normal right ventricular systolic pressure. Estimated peak RVSP is 35mmHg. Mild tricuspid regurgitation . Atrial fibrillation. Technically difficult study with suboptimal views. Electronically Signed By: Ko Smith MD 09/11/2024 11:22:09 AM DATABASE ADMINISTRATION MANAGER Ko Smith MD CV ECHO PROCEDURES Final Result * Surgical pathology (08/25/2024 3:00 PM DATABASE ADMINISTRATION MANAGER) Tissue specimen (specimen) (Polyp(s), colon/colorectal, esophageal, gastric) 08/25/2024 9:23 AM DATABASE ADMINISTRATION MANAGER Narrative PATHOLOGY [facility] ([place]) - 08/26/2024 1:44 PM DATABASE ADMINISTRATION MANAGER EPIC results best viewed via link to PDF [facility] Department of Pathology [address] [place], [place] [id number] Note to Patients: This report may contain a detailed description of human tissue sent by a health care provider to the laboratory for pathologic evaluation. The content of this report is essential for diagnosis and may provide important critical findings. This information may be unfamiliar to patients to review without a medical professional present. It is advised that the patient review this report in the presence of a health care provider who can answer questions and explain the details. Final Report Patient Name: RAO SANCHEZ Address: [address] [place] [address] [address] [place] [id number] Gender: M : 1955 (Age: 69) Service: Gastro Location: [facility] Hospital #: [id number] Patient Type: [facility] Taken: 08/25/2024 Received: 08/25/2024 Accessioned: 08/25/2024 Reported: 08/26/2024 Physician(s):Dr. Constantino Booth M.D. Diagnosis: Sigmoid colon polyp x3, biopsy: - Tubular adenoma x2; negative for high-grade dysplasia. - Hyperplastic polyp x1. Chaitanya Burrell M.D. Report Electronically Reviewed and Signed Out By Chaitanya Burrell M.D. 08/26/2024 13:44:10 Specimen(s) Received: A: Sigmoid colon polyps Microscopic Description: Sections show a tubular adenoma x2 and a hyperplastic polyp x1. There is no evidence of high-grade dysplasia or invasive carcinoma. Clinical History: Screening colonoscopy. Gross Description: The specimen is submitted in a single formalin filled container labeled RAO SANCHEZ and sigmoid colon polyps . It is 3 fragments of rodriguez tissue between 3 and 4 mm. All in one cassette. Dee Beauchamp R.N., P.A./Estefani Cruz M.D. REPORT IMAGES AND SCANNED DOCUMENTS, IF INCLUDED, ONLY VIEWABLE IN PDF VERSION OF REPORT The performance characteristics of some immunohistochemical stains, fluorescence in-situ hybridization tests and immunophenotyping by flow cytometry cited in this report (if any) were determined by the Surgical Pathology Department at [facility] as part of an ongoing supplier quality engineering manager program and in compliance with federally mandated regulations drawn from the Clinical Laboratory Improvement Act of 1988 (CLIA '88). Some of these tests rely on the use of analyte specific reagents and are subject to specific labeling requirements by the US Food and Drug Administration. Such diagnostic tests may only be performed in a facility that is certified by the Department of Health and Human Services as a high complexity laboratory under CLIA '88. The FDA has determined that such clearance or approval is not necessary. This test is used for clinical purposes. It should not be regarded as investigational or for research. Nevertheless, federal rules concerning the medical use of analyte specific reagents require that the following disclaimer be attached to the report: This test was developed and its performance characteristics determined by the Surgical Pathology Department [facility]. It has not been cleared or approved by the U. S. Food and Drug Administration. Note for decalcified specimens: This assay has not been validated on decalcified tissues. Results should be interpreted with caution given the possibility of false negativity on decalcified specimens us Constantino Booth MD LAB PATHOLOGY ORDERABLES F inal Result PATHOLOGY [facility] [address] [place] [address] * Colonoscopy (08/25/2024 8:12 AM DATABASE ADMINISTRATION MANAGER) Anatomical Region Laterality Modality Other Narrative Procedure Note Constantino Booth MD - 08/25/2024 8:12 AM CST [facility] Patient Name: Rao Sanchez Procedure Date: 08/25/2024 8:12 AM Date of : 1955 Admit Type: Outpatient Age: 69 Gender: Male Attending MD: Constantino Booth M.D. Room: [facility] ENDOSCOPY ROOM 1 Note Status: Finalized Patient Profile: This is a 69 year old male. No family history ofcolon cancer. No specific GI complaints Procedure: Colonoscopy Indications: Screening for colorectal malignant neoplasm, Thisis the patient's first colonoscopy Referring MD: Julius Pelayo M.D. Providers: Constantino Booth M.D. Impression: - Three 8 to 10 mm polyps in the sigmoid colon andin the descending colon, removed with a cold snare. Resected and retrieved. - Internal hemorrhoids. Recommendation: - Await pathology results. - Repeat colonoscopy in 3 years for surveillancewith 2 days colon preparation. - Continue present medications. Resume Xarelto in 2 days Medicines: Monitored Anesthesia Care Complications: No immediate complications. Estimated Blood Loss: Estimated blood loss: none. Procedure: Pre-Anesthesia Assessment: - Prior to the procedure, a History and Physicalwas performed, and patient medications and allergieswere reviewed. The patient's tolerance of previous anesthesia was also reviewed. The risks andbenefits of the procedure and the sedation options and risks were discussed with the patient. All questions were answered, and informed consent was obtained. Prior Anticoagulants: The patient has taken noanticoagulant or antiplatelet agents. ASA Grade Assessment: Per anesthesia note and evaluation. After reviewing the risks and benefits, the patient was deemed in satisfactory condition to undergo the procedure. The benefits, risks and alternatives of theprocedure and sedation were discussed and informed consentwas obtained. All questions were answered. Please referto the signed informed consent document in the medical record. The bowel preparation used was Miralax via split dose instruction. The bowel preparation usedwas bisacodyl tablets via split dose instruction. The scope was passed under direct vision. The Pediatric Colonoscope [id number] was introducedthrough the anus and advanced to the the cecum, identifiedby appendiceal orifice and ileocecal valve. Thequality of the bowel preparation was fair. Bowel prep was administered using a split dose. Findings: The perianal and digital rectal examinations were normal. The transverse colon, ascending colon and cecum appeared normal. Three sessile polyps were found in the sigmoid colon and descending colon. The polyps were 8 to 10 mm in size. These polyps were removed with a cold snare. Resection and retrieval were complete. Internal hemorrhoids were found during retroflexion. The hemorrhoids were small. Electronically signed by Constantino Booth M.D. Constantino Booth M.D. 08/25/2024 9:45:13 AM Number of Addenda: 0 Note Initiated On: 08/25/2024 8:12 AM Procedure Code(s): --- Professional --- 16640, Colonoscopy, flexible; with removal of tumor(s), polyp(s), or other lesion(s) by snare technique Diagnosis Code(s): --- Professional --- Z12.11, Encounter for screening for malignant neoplasm of colon K64.8, Other hemorrhoids D12.5, Benign neoplasm of sigmoid colon D12.4, Benign neoplasm of descending colon CPT copyright 2020 [employer]. All rights reserved. The codes documented in this report are preliminary and upon java web application developer reviewmay be revised to meet current compliance requirements. Recognized by the [employer] for promoting quality in endoscopy us Constantino Booth MD ENDOSCOPY PROCEDURES Final Result * (ABNORMAL) PSA screen (08/05/2024 8:34 AM DATABASE ADMINISTRATION MANAGER) PSA-Total 5.68(H) <=5.40 ng/mL Comment: Interpretive Data AGE SEX REFERENCE INTERVAL 0 minutes-150 years Female None 0 minutes-49 years Male None 50-59 years Male 0-3.90 60-69 years Male 0-5.40 70-79 years Male 0-6.20 80-150 years Male 0-6.20 The Danilo PSA Total assay procedure was used. Results from different manufacturers or methods may not be comparable. Serial testing should be performed using the same method. Current interpretive data last revised 21. Testing performed by: [facility], [address] [place] [address], [place]., [address] Blood 08/05/2024 8:34 AM DATABASE ADMINISTRATION MANAGER 08/05/2024 12:39 PM DATABASE ADMINISTRATION MANAGER Julius Pelayo MD LAB BLOOD ORDERABLES Rachel l Result Performing Organization Address [facility] de Phone Number [facility] ([place]) [facility] Department [place] [address] * eGFR (07/30/2024 8:17 AM DATABASE ADMINISTRATION MANAGER) eGFR >90 >=60 mL/min/1. 73 m2 Comment: Interpretive Data Reference Interval Normal >/= 90 mL/min/1.73m2 Mildly decreased* 60 - 89 mL/min/1.73m2 Mildly to moderately decreased 45 - 59 mL/min/1.73m2 Moderately to severely decreased 30 - 44 mL/min/1.73m2 Severely decreased 15 - 29 mL/min/1.73m2 Kidney Failure < 15 mL/min/1.73m2 *Relative to young adult level Estimated glomerular filtration rate is determined by the 2020 CKD-EPI equation recommended by the National Kidney Foundation (A Unifying Approach to GFR Estimation: Recommendations of the NKF-ASK Task Force on Reassessing the Inclusion of Race in Diagnosing Kidney Disease, JASN 2020). The CKD-EPI equation should not be used for patients with unstable renal function and has not been validated in children and those over 70. Current interpretive data was last reviewed 2021. Testing performed by: [address] [address] Blood 07/30/2024 8:17 AM DATABASE ADMINISTRATION MANAGER 07/30/2024 12:45 PM DATABASE ADMINISTRATION MANAGER Julius Pelayo MD LAB BLOOD ORDERABLES Rachel l Result Performing Organization Address City/[facility]/ZIP Co de Phone Number [facility] ([place] Department [place] [employer] [place] [address] * Differential, auto (07/30/2024 8:17 AM DATABASE ADMINISTRATION MANAGER) Neutrophil abs 2.5 1.5 - 6.5 K/cumm Comment:Testing performed by : [address] [address] Imm gran abs 0.0 0.0 - 0.1 K/cumm [facility] ([place]) Comment:Testing performed by : [facility], [address] [place] [address]., [address] Lymphocyte abs 1.5 0.8 - 3.3 K/cumm [facility] ([place]) Comment:Testing performed by : [facility], [address] [place] [address]., [address] Monocyte abs 0.6 0.2 - 0.8 K/cumm [facility] ([place]) Comment:Testing performed by : [facility], [address] [place] [address]., [id number] Eosinophil abs 0.2 0.0 - 0.5 K/cumm [facility] ([place]) Comment:Testing performed by : [facility], [address] [place] [address]., [address] Basophil abs 0.1 0.0 - 0.1 K/cumm [facility] ([place]) Comment:Testing performed by : [address] [address] Neutrophil pct 51.9 % [facility] ([place]) Comment: Interpretive Data Percent cell count reference ranges are not reported, since discordance with absolute values may lead to misinterpretation of CBC data. Current Interpretive Data was last revised on 2017. Testing performed by: [address] [address] Imm gran pct 0.6 % [facility] ([place]) Comment: Interpretive Data Percent cell count reference ranges are not reported, since discordance with absolute values may lead to misinterpretation of CBC data. Current Interpretive Data was last revised on 2017. Testing performed by: [address] [address] Lymphocyte pct 30.0 % [facility] ([place] Comment: Interpretive Data Percent cell count reference ranges are not reported, since discordance with absolute values may lead to misinterpretation of CBC data. Current Interpretive Data was last revised on 2017. Testing performed by: [address] [address] Monocyte pct 13.0 % [facility] ([place]) Comment: Interpretive Data Percent cell count reference ranges are not reported, since discordance with absolute values may lead to misinterpretation of CBC data. Current Interpretive Data was last revised on 2017. Testing performed by: [facility], [address] [place] [address]., [id number] Eosinophil pct 3.3 % [facility] ([place]) Comment: Interpretive Data Percent cell count reference ranges are not reported, since discordance with absolute values may lead to misinterpretation of CBC data. Current Interpretive Data was last revised on 2017. Testing performed by: [address] [address] Basophil pct 1.2 % [facility] ([place]) Comment: Interpretive Data Percent cell count reference ranges are not reported, since discordance with absolute values may lead to misinterpretation of CBC data. Current Interpretive Data was last revised on 2017. Testing performed by: [address] [address] Blood 07/30/2024 8:17 AM DATABASE ADMINISTRATION MANAGER 07/30/2024 12:37 PM DATABASE ADMINISTRATION MANAGER Julius Pelayo MD LAB BLOOD ORDERABLES Rachel lin Result [facility]OBO CALZADA ([place]) [facility] [place] [address] * CBC with auto differential (07/30/2024 8:17 AM DATABASE ADMINISTRATION MANAGER) WBC 4.8 3.8 - 9.9 K/cumm Comment:Testing performed by : [address] [address] Hgb 15.6 13.0 - 17.5 g/dL [facility] ([place]) Comment:Testing performed by : [address] [address] Hct 48.3 38.9 - 50.3 % [facility] ([place]) Comment:Testing performed by : [address] [address] Plt 157 150 - 400 K/cumm [facility] ([place]) Comment:Testing performed by : [address], [address] MPV 10.7 9.1 - 12.3 fL [facility] ([place]) Comment:Testing performed by : [facility], [address] [place] [address], [address] RBC 5.25 4.30 - 5.80 M/cumm [facility] ([place]) Comment:Testing performed by : [facility], [address] [place] [address], [address] MCV 92.0 81.3 - 96.4 fL [facility] ([place]) Comment:Testing performed by : [facility], [address] [place] [address], [address] MCH 29.7 27.1 - 33.3 pg [facility] ([place]) Comment:Testing performed by : [facility], [address] [place] [address], [address] MCHC 32.3 32.3 - 35.7 g/dL [facility] ([place]) Comment:Testing performed by : [facility], [address] [place] [address], [address] RDW CV 13.4 11.1 - 14.9 % [facility] ([place]) Comment:Testing performed by : [address], [address] RDW SD 45.4 35.7 - 48.1 fL [facility] ([place]) Comment:Testing performed by : [address], [address] NRBC abs 0.00 0.00 - 0.01 K/cumm [facility] ([place]) Comment:Testing performed by : [address], [address] Blood 07/30/2024 8:17 AM DATABASE ADMINISTRATION MANAGER 07/30/2024 12:37 PM DATABASE ADMINISTRATION MANAGER us Julius Pelayo MD LAB BLOOD ORDERABLES Rachel lin Result [facility] ([place]) 1 [facility] Department of [facility] [place], [place] [id number] * (ABNORMAL) Lipid panel (07/30/2024 8:17 AM DATABASE ADMINISTRATION MANAGER) Cholesterol 115 30 - 199 mg/dL Comment: Interpretive Data Ages < or = 19 years Acceptable: <170 mg/dL Borderline high: 170-199 mg/dL High: >or= 200 mg/dL Ages > or = 20 years Desirable: <200 mg/dL Borderline high: 200-239 mg/dL High: >or= 240 mg/dL Literature References: 1. Expert Panel on Integrated Guidelines for Cardiovascular Health and Risk Reduction in Children and Adolescents. Pediatrics 2011;128:S213 2. NCEP Expert Panel. Circulation 2004;110:227 Current Interpretive Data was last revised on 2018. Testing performed by: [address] [address] Triglycerides 49 <=149 mg/dL [facility] ([place]) Comment: Interpretive Data Ages < or = 9 years Acceptable: <75 mg/dL Borderline high: 75-99 mg/dL High: >or= 100 mg/dL Ages 10 to 20 years Acceptable: <90 mg/dL Borderline high: 90-129 mg/dL High: >or= 130 mg/dL Ages > or = 20 years Desirable: <150 mg/dL Borderline high: 150-199 mg/dL High: 200-499 mg/dL Very high: >or= 499 mg/dL Literature References: 1. Expert Panel on Integrated Guidelines for Cardiovascular Health and Risk Reduction in Children and Adolescents. Pediatrics 2011;128:S213 2. NCEP Expert Panel. Circulation 2004;110:227 Current Interpretive Data was last revised on 2018. Testing performed by: [facility], [address] [place] [address]., [address] HDL 32(L) >=40 mg/dL [facility] Rem[facility] ([place]) Comment: Interpretive Data Ages < or = 19 years Acceptable: >45 mg/dL Borderline low: 40-45 mg/dL Low: <40 mg/dL Ages > or = 20 years Desirable: >or= 60 mg/dL Low: <40 mg/dL Literature References: 1. Expert Panel on Integrated Guidelines for Cardiovascular Health and Risk Reduction in Children and Adolescents. Pediatrics 2011;128:S213 2. NCEP Expert Panel. Circulation 2004;110:227 Current Interpretive Data was last revised on 2018. Testing performed by: [address] [address] LDL, calculated 71 <=129 mg/dL [facility] ([place]) Comment: Interpretive Data Ages < or = 19 years Acceptable: <110 mg/dL Borderline high: 110-129 mg/dL High: >or= 130 mg/dL Ages > or = 20 years Optimal: <100 mg/dL Near optimal: 100-129 mg/dL Borderline high: 130-159 mg/dL High: >160 mg/dL Calculated using the Kristian LDL-C estimating equation. This equation was implemented on 2024. Prior to this date LDL-C was estimated using the Friedewald equation. Literature References: 1. Expert Panel on Integrated Guidelines for Cardiovascular Health and Risk Reduction in Children and Adolescents. Pediatrics 2011;128:S213 2. NCEP Expert Panel. Circulation 2004;110:227 3. Kristian M et al. SHEEBA Cardiol. 2020 November 12;5(5):540-548. doi: 10.1001/[email or web address] Current Interpretive Data was last revised on 2024. Testing performed by: [address] [address] Non-HDL Cholesterol 83 mg/dL LOBO PERAZA) Comment: Interpretive Data Ages < or = 19 years Acceptable: <120 mg/dL Borderline high: 120-144 mg/dL High: >145 mg/dL Ages > or = 20 years When triglycerides are >200 mg/dL, Non-HDL cholesterol is a secondary target of therapy with treatment goals that are 30 mg/dL greater than the LDL cholesterol target. Literature References: 1. Expert Panel on Integrated Guidelines for Cardiovascular Health and Risk Reduction in Children and Adolescents. Pediatrics 2011;128:S213 2. NCEP Expert Panel. Circulation 2004;110:227 Current Interpretive Data was last revised on 2018. Testing performed by: [facility], [address] [place] [address]., [address] Chol/HDL ratio 4 JASBIR CALZADA ([place]) Comment:Testing performed by : [address] [address] Blood 07/30/2024 8:17 AM DATABASE ADMINISTRATION MANAGER 07/30/2024 12:37 PM DATABASE ADMINISTRATION MANAGER us Julius Pelayo MD LAB BLOOD ORDERABLES Rachel l Result [facility] CAL[facility]ADA ([place]) 1 [facility] [place] [address] * Comprehensive metabolic panel (07/30/2024 8:17 AM DATABASE ADMINISTRATION MANAGER) Sodium 140 135 - 145 mmol/L Comment:Testing performed by : [facility], [address] [place] [address]., [address] Potassium, pl 4.8 3.3 - 4.9 mmol/L [facility] ([place]) Comment:Testing performed by : [facility], [address] [place] [address]., [address] Chloride 104 97 - 110 mmol/L [facility] ([place]) Comment:Testing performed by : [facility], [address] [place] [address]., [address] CO2 26 22 - 32 mmol/L [facility] ([place]) Comment:Testing performed by : [facility], [address] [place] [address]., [address] Anion gap 10 2 - 15 mmol/L [facility] ([place]) Comment:Testing performed by : [facility], [address] [place] [address]., [address] BUN 19 6 - 25 mg/dL [facility] ([place]) Comment:Testing performed by : [facility], [address] [place] [address]., [address] Creatinine 0.87 0.80 - 1.30 mg/dL [facility] ([place]) Comment:Testing performed by : [address] [address] Glucose 109 70 - 199 mg/dL [facility] ([place] Comment: Interpretive Data Fasting glucose >/= 126 mg/dl is diagnostic for diabetes. Fasting is defined as no caloric intake for at least 8 hours. Fasting glucose between 100 mg/dl to 125 mg/dl is diagnostic of prediabetes. In a patient with classic symptoms of hyperglycemia or hyperglycemic crisis, a random glucose >/= 200 mg/dl is diagnostic for diabetes. In the absence of unequivocal hyperglycemia, results should be confirmed by repeat testing. The classification and Diagnosis of Diabetes Diabetes Care 202; 46: S19-S40. Current interpretive data was last revised 2022. Testing performed by: [facility], [address] [place] [address]., [address] Calcium 9.2 8.5 - 10.3 mg/dL [facility] ([place]) Comment:Testing performed by : [facility], [address] [place] [address], [address] Bilirubin, total 1.1 0.1 - 1.2 mg/dL [facility] ([place]) Comment:Testing performed by : [facility], [address] [place] [address], [address] Protein, pl 6.5 6.5 - 8.5 g/dL [facility] ([place]) Comment:Testing performed by : [facility], [address] [place] [address], [address] Albumin 4.0 3.5 - 5.0 g/dL [facility] ([place]) Comment:Testing performed by : [facility], [address] [place] [address], [address] Alk phos 98 40 - 130 Units/L [facility] ([place]) Comment:Testing performed by : [address], [address] ALT 21 7 - 55 Units/L [facility] ([place]) Comment:Testing performed by : [facility], [address] [place] [address], [address] AST 27 10 - 50 Units/L [facility] ([place]) Comment:Testing performed by : [address], [address] Blood 07/30/2024 8:17 AM DATABASE ADMINISTRATION MANAGER 07/30/2024 12:37 PM DATABASE ADMINISTRATION MANAGER Julius Pelayo MD LAB BLOOD ORDERABLES Rachel lin Result [facility] ([place]) [facility] [place] [address] from Last 3 Months Insurance MEDICARE [employer] [address] [place] [id number] MEDICARE [employer] MED[employer] Advance Directives For more information, please contact: [phone] * Full Code (Latest Code Status on File) Date Activated Date Inactivated Comments 08/25/2024 8:19 AM 08/25/2024 2:23 PM * Full Code Date Activated Date Inactivated Comments 08/25/2024 8:19 AM 08/25/2024 8:19 AM * Full Code Date Activated Date Inactivated Comments 06/12/2022 5:48 PM 06/13/2022 7:37 PM * Full Code Date Activated Date Inactivated Comments 06/16/2021 11:38 AM 06/16/2021 6:49 PM Care Teams Dust Brush Assembler Relationship Specialty Start Date End Date Julius Pelayo MD [address] [place] [address] PCP - General 01/18/11 Austen Natarajan NP [address] [place] [address] [place] [address] Nurse Practitioner Nurse Practitioner 06/13/22
--- OUTSIDE RECORDS SUMMARY | 2024-10-21 13:18 | XMS_ITS | Referral Summary ---
Author Organization [facility] [place] [facility] Address [address] [place] [address] Care Team Providers Care Client Analyst Name Role Phone Julius Pelayo MD Primary Care Provider [phone] Austen Natarajan NP Unavailable [phone] Encounters Date Type Department Care Team Description 10/08/2024 9:45 AM CDT - 10/08/2024 10:45 AM CDT Surgery [facility] Operating Room 1 [place] [address] Alonzo Hensley MD URONAV GUIDED PROSTATE BIOPSY 10/08/2024 9:21 AM CDT Anesthesia Event [facility] Operating Room 1 [place] [address] Tr Graves MD Reynolds, Ethan Emerson, MD 10/08/2024 6:59 AM CDT - 10/08/2024 12:11 PM CDT Hospital Encounter [facility] Operating Room 1 [place] [address] Alonzo Hensley MD Elevated prostate specific antigen (PSA) Discharge Disposition: Discharge to home or self care 10/07/2024 8:15 AM CDT Office Visit [place] [facility] at [address] [place] [phone] Marsha Chauhan NP Chronic atrial fibrillation (HCC) (Primary Dx); Coronary artery disease involving [place] coronary artery of [place] heart without angina pectoris; JIMBO on CPAP; Thoracic aortic aneurysm (TAA), unspecified part, unspecified whether ruptured 09/11/2024 7:58 AM EXPERIMENTAL MECHANIC SPACECRAFT - 09/11/2024 11:59 PM EXPERIMENTAL MECHANIC SPACECRAFT Hospital Encounter [address] [address] Aneurysm of ascending aorta without rupture Discharge Disposition: Discharge to home or self care 09/11/2024 7:58 AM EXPERIMENTAL MECHANIC SPACECRAFT - 09/11/2024 11:59 PM EXPERIMENTAL MECHANIC SPACECRAFT Hospital Encounter [facility] Cardiology [address] [place] [address] Chronic atrial fibrillation (HCC) Discharge Disposition: Discharge to home or self care 09/10/[address] [address] Nalep[place], October D. 08/31/2024 Results Follow-Up [facility] Gastro[facility] at [address] [place] [address] Constantino Booth MD 08/25/2024 9:02 AM EXPERIMENTAL MECHANIC SPACECRAFT Anesthesia Event [address] [address] Emeka Wang MD 08/25/2024 9:30 AM EXPERIMENTAL MECHANIC SPACECRAFT - 08/25/2024 10:00 AM EXPERIMENTAL MECHANIC SPACECRAFT Surgery [address] [address] Constantino Booth MD COLON REMOVAL SNARE 08/25/2024 7:56 AM EXPERIMENTAL MECHANIC SPACECRAFT - 08/25/2024 10:23 AM EXPERIMENTAL MECHANIC SPACECRAFT Hospital Encounter [address] [address] Constantino Booth MD Encounter for screening colonoscopy Discharge Disposition: Discharge to home or self care 08/10/2024 Orders Only [facility] [address] [address] Julius Pelayo MD Elevated PSA (Primary Dx) 08/05/2024 8:35 AM EXPERIMENTAL MECHANIC SPACECRAFT Lab [facility] Laboratory [address] [place] [phone] Prostate cancer screening 08/05/2024 8:00 AM EXPERIMENTAL MECHANIC SPACECRAFT Office Visit [facility] [address] [address] Julius Pelayo MD Annual physical exam (Primary Dx); Prostate cancer screening; JIMBO on CPAP; Mixed hyperlipidemia; Primary hypertension; Chronic atrial fibrillation (HCC); S/P total knee arthroplasty, right; BMI 39.0-39.9,adult; Severe obesity (BMI 35.0-39.9) with comorbidity (HCC); Hypertensive heart disease with heart failure (HCC) 07/30/2024 8:10 AM EXPERIMENTAL MECHANIC SPACECRAFT Lab [facility] Laboratory [address] [place] [address] Encounter for hearing examination, unspecified whether abnormal findings from Last 3 Months Allergies No known active allergies Medications rivaroxaban [...] 08/05/2024 Assessment & Plan (08/05/2024 8:35 AM EXPERIMENTAL MECHANIC SPACECRAFT): Continues to improved on ROM and will follow response. Prostate cancer screening 08/05/2024 Assessment & Plan (08/05/2024 8:36 AM EXPERIMENTAL MECHANIC SPACECRAFT): Updating PSA. Reviewed Prostate anatomy. Encounter for hearing examination 08/05/2024 Assessment & Plan (08/05/2024 8:37 AM EXPERIMENTAL MECHANIC SPACECRAFT): COntinues with hearing aids. No acute chagnes. Focus of exam is preventative in nature. Reviewed immunizations, reivewed sun/skin cancer screening. Reviewed colon/prostate cancer screening. Reveiwed aerobic exercise targets and goal of 150min/week aerobic exercise and will montior response./ BMI 39.0-39.9,adult 08/05/2024 Assessment & Plan (08/05/2024 8:36 AM EXPERIMENTAL MECHANIC SPACECRAFT): Encourage 150min/week aerobic exericse. Healthy food choices. Encounter for screening colonoscopy 2024 Arthritis of knee 06/12/2022 Encounter for pre-operative examination 06/06/20 Assessment & Plan (06/06/2022 10:01 AM EXPERIMENTAL MECHANIC SPACECRAFT): Reviewed labs, and EKG. Patient cleared for upcoming surgery on 06/12/22. Cleared by prison guard, Dr. Smith. Patient to hold xarelto x 2 days before surgery. Primary osteoarthritis of right knee 05/10/2022 Overview (05/10/2022): Added automatically from request for surgery [id number] Chronic atrial fibrillation 02/20/2022 Assessment & Plan (08/05/2024 8:35 AM EXPERIMENTAL MECHANIC SPACECRAFT): Continues on xarelto and carvedilol and will monitor ersponse. Assessment & Plan (06/06/2022 10:02 AM EXPERIMENTAL MECHANIC SPACECRAFT): Rate controlled. Continues BB and xarelto. Dilated cardiomyopathy 02/20/2022 Assessment & Plan (06/06/2022 10:03 AM EXPERIMENTAL MECHANIC SPACECRAFT): Stable on current medication regimen. Following with cardiology. Coronary artery disease invo lving [place] coronary artery of [place] heart without angina pectoris 02/20/2022 Assessment & Plan (06/06/2022 10:03 AM EXPERIMENTAL MECHANIC SPACECRAFT): Results for orders placed or performed in [...] 02/20/2022 Assessment & Plan (08/05/2024 8:35 AM EXPERIMENTAL MECHANIC SPACECRAFT): Continues to benefit from ngihtly positive pressure therapy. WIll continue to follow response. Assessment & Plan (06/06/2022 10:02 AM EXPERIMENTAL MECHANIC SPACECRAFT): Nightly CPAP use. Hypertensive heart disease with heart failure Assessment & Plan (08/05/2024 8:36 AM EXPERIMENTAL MECHANIC SPACECRAFT): COntinue on xarelto and entresto. No BOND. Normalization of ECho. NO side effects to entresto. Class 2 severe obesity due t o excess calories with serious comorbidity and body mass index (BMI) of 39.0 to 39.9 in adult 07/25/2021 Preoperative testing 06/13/2021 Overview (06/13/2021): Added automatically from request for surgery [id number] BOND (dyspnea on exertion) 06/13/2021 Overview (06/15/2021): Added automatically from request for surgery [id number] Hyperlipidemia 06/13/2021 Overview (06/15/2021): Added automatically from request for surgery [id number] Assessment & Plan (08/05/2024 8:35 AM EXPERIMENTAL MECHANIC SPACECRAFT): Stable on high intenstiy statin therapy with atorvastatin. Abnormal glucose 06/01/2021 LV dysfunction 06/01/2021 Assessment & Plan (06/01/2021 9:08 AM EXPERIMENTAL MECHANIC SPACECRAFT): Patient's symptoms are suspicious for angina and [...] NOS Assessment & Plan (08/05/2024 8:35 AM EXPERIMENTAL MECHANIC SPACECRAFT): Stable on carvedilol and entresto. No side effects noted to medication. Immunizations Immunization Administration Dates Next Due Influenza, Quadrivalent, Hig h Dose, Preservative Free, Intrr 06/06/2022 Influenza, Unspecified 06/06/2022(Deferr ed: Patient Refused),07/25/2021(Deferred: Patient Refused),04/14/2021(Deferred: Patient Refused),03/15/2021(Deferred: Patient Refused),07/13/2020(Deferred: Patient Refused),07/15/2019(Deferred: Patient Refused),07/13/2019(Deferred: Patient Refused),07/15/2018(Deferred: Patient Refused) Moderna SARS-CoV-2 Monovalen t Vaccination (12+ YRS) 07/04/2021 Tdap 04/18/2018,04/08/2012 Social History Tobacco Use Types Packs/Day Years [...] on file Legal Sex Male 2:00 PM EXPERIMENTAL MECHANIC SPACECRAFT Gender Identity Not on file Sexual Orientation Not on file Last Filed Vital Signs Vital Sign Reading [...] 10/08/2024 7:33 AM CDT Plan of Treatment Not on file Medical Devices Implanted Type Area Car Salesperson Device Identifier Shelf Expiration Date Model / Serial / Lot [employer] [id number] Angio-Seal Evolution 6fr .035in Guidewire Bypass Tube Suture - [id number] Implanted:Qty: 1 on 06/16/2021 by Ko Smith MD at [facility] [employer] 12/12/2021 [id number] / / [id number] [employer] Cement Bone Simplex Gentamicin High Viscosity 40gm 6195-1-001 - [id number] Implanted:Qty: 1 on 06/12/2022 by Ronald Back MD at [facility] Right: Knee [employer] [id number] 10/13/2023 6195-1-001 / / [id number] [employer] Attune S+ Cement Fix Bearing Knee 8 Baseplate Tibial [id number] - [id number] Implanted:Qty: 1 on 06/12/2022 by Ronald Back MD at [facility] Right: Knee [employer] [id number] 02/12/2032 [id number] / / [id number] [employer] Attune Cruciate Retain Cementless Knee Right 9 Component Femoral [id number] - [id number] Implanted:Qty: 1 on 06/12/2022 by Ronald Back MD at [facility] Right: Knee [employer] [id number] 08/14/2029 [id number] / / [id number] [employer] Attune 10mm Cruciate Retaining Fix Bearing Knee 9 Insert Tibial [id number] - [id number] Implanted:Qty: 1 on 06/12/2022 by Ronald Back MD at [facility] Right: Knee [employer] [id number] 08/14/2022 [id number] / / [id number] Procedures Procedure Name Priority Date/Time Associated Diagnosis Comments SURGICAL PATHOLOGY Routine 10/08/2024 10 :13 AM CDT Elevated prostate specific antigen (PSA) URONAV GUIDED PROSTATE BIOPSY 10/08/2024 9:21 AM CDT Elevated prostate specific antigen (PSA) ECG 12-LEAD STAT 10/08/2024 7:[address] CHEST WO CONTRAST Schedule Routine, Read Routine (OP Routine) 09/11/2024 9:03 AM EXPERIMENTAL MECHANIC SPACECRAFT Aneurysm of ascending aorta without rupture TRANSTHORACIC ECHO (TTE) COMPLETE W DOPPLER/CF WO CONTRAST Routine 09/11/2024 8:42 AM EXPERIMENTAL MECHANIC SPACECRAFT Chronic atrial fibrillation (HCC) SURGICAL PATHOLOGY STAT 08/25/2024 3: 00 PM EXPERIMENTAL MECHANIC SPACECRAFT Encounter for screening colonoscopy COLON REMOVAL SNARE 08/25/2024 8 :57 AM EXPERIMENTAL MECHANIC SPACECRAFT Encounter for screening colonoscopy COLONOSCOPY 08/25/2024 8:12 AM EXPERIMENTAL MECHANIC SPACECRAFT PSA SCREEN Routine 08/05/2024 8:34 AM EXPERIMENTAL MECHANIC SPACECRAFT Prostate cancer screening EGFR Routine 07/30/2024 8:17 AM EXPERIMENTAL MECHANIC SPACECRAFT Encounter for hearing examination, unspecified whether abnormal findings DIFFERENTIAL AUTO Routine 07/30/2024 8:1 7 AM EXPERIMENTAL MECHANIC SPACECRAFT Encounter for hearing examination, unspecified whether abnormal findings CBC WITH AUTO DIFFERENTIAL Routine 07/30/2024 8:17 AM EXPERIMENTAL MECHANIC SPACECRAFT Encounter for hearing examination, unspecified whether abnormal findings COMPREHENSIVE METABOLIC PANEL Routine 07/30/2024 8:17 AM EXPERIMENTAL MECHANIC SPACECRAFT Encounter for hearing examination, unspecified whether abnormal findings LIPID PANEL Routine 07/30/2024 8:17 AM EXPERIMENTAL MECHANIC SPACECRAFT Encounter for hearing examination, unspecified whether abnormal [...] results best viewed via link to PDF [facility] Department of Pathology [address] [place], [place] [id number] Note to Patients: This report may contain [...] Final Report Patient Name: RAO SANCHEZ Address: [address] [address] Gender: M : 1955 (Age: 69) Service: Surgery Location: [facility] Hospital #: [id number] Patient Type: [facility] Taken: 10/08/2024 Received: 10/09/2024 Accessioned: 10/09/2024 Reported: 10/13/2024 Physician(s):Alonzo Hensley M.D. Diagnosis: A. Prostate, right lateral base, biopsy: - Focal atypical glands. B. Prostate, right medial base, biopsy: - Adenocarcinoma, Amelie score 7 (3+4), 10% Pattern 4, Grade group 2, involving 1 of 1 core, measuring 4 mm in combined dimension, 30% of total biopsy tissue. C. Prostate, right lateral mid, biopsy: - Benign prostatic tissue. D. Prostate, right medial mid, biopsy: - Adenocarcinoma, Amelie score 6 (3+3), Grade group 1, involving 1 of 2 cores, measuring 2 mm in combined dimension, 10% of total biopsy tissue. E. Prostate, right lateral apex, biopsy: - Adenocarcinoma, Amelie score 7 (3+4), 10% Pattern 4, Grade group 2, involving 2 of 2 cores, measuring 6 mm in combined dimension, 30% of total biopsy tissue. F. Prostate, right medial apex, biopsy: - Adenocarcinoma, Jefferson score 7 (3+4), 10% Pattern 4, Grade group 2, involving 1 of 1 core, measuring 4 mm in combined dimension, 40% of total biopsy tissue. G. Prostate, left lateral base, biopsy: - Benign prostatic tissue. H. Prostate, left medial base, biopsy: - Adenocarcinoma, Jefferson score 7 (4+3), 70% Pattern 4, Grade [...] Prostate, left lateral apex, biopsy: - Adenocarcinoma, Amelie score 6 (3+3), Grade group 1, involving 1 of 1 core, measuring 1 mm in combined dimension, 10% of total biopsy tissue. L. Prostate, left medial apex, biopsy: - Adenocarcinoma, Jefferson score 7 (3+4), 40% Pattern 4, Grade group 2, involving 1 of 1 core, measuring 5 mm in combined dimension, 50% of total biopsy tissue. M. Prostate, region of interest #1, biopsy: - Benign prostatic tissue. N. Prostate, region of interest #2, biopsy: - Adenocarcinoma, Jefferson score 7 (4+3), 60% Pattern 4, Grade [...] 1.9-2.7 cm in length, submitted as N. Kary Cunningham./Estefani Cruz M.D. REPORT IMAGES AND SCANNED DOCUMENTS, IF INCLUDED, ONLY VIEWABLE IN PDF VERSION OF REPORT The performance characteristics of some immunohistochemical stains, fluorescence in-situ hybridization tests and immunophenotyping by flow cytometry cited in this report (if any) were determined by the Surgical Pathology Department at [facility] as part of an ongoing associate quality engineer program and in compliance with federally mandated [...] characteristics determined by the Surgical Pathology Department [facility]. It has not been cleared or approved by the U. S. Food and Drug Administration. Note for decalcified specimens: This assay has not been validated on decalcified tissues. Results should be interpreted with caution given the possibility of false negativity on decalcified specimens Alonzo Hensley MD LAB PATHOLOGY [facility] Final Result Performing Organization Address City/State/[facility] Co de Phone Number PATHOLOGY [facility] ([address] [address] * CT Chest WO Contrast (09/11/2024 9:03 AM EXPERIMENTAL MECHANIC SPACECRAFT) Anatomical Region Laterality Modality Body N/A Computed Tomogra phy 09/16/2024 2:09 AM EXPERIMENTAL MECHANIC SPACECRAFT Narrative 09/16/2024 2:24 AM EXPERIMENTAL MECHANIC SPACECRAFT EXAM DESCRIPTION: CT CHEST WO CONTRAST REASON [...] Michael Mabry M.D. BB: TYLER Report ID: [id number] Reading Location: [place] [address] Procedure Note Michael Mabry MD PhD - [...] Michael Mabry M.D. BB: TYLER Report ID: [id number] Reading Location: [place] [address] us Ko Smith MD IMG CT PROCEDURES Final Result * TRANSTHORACIC ECHO (TTE) COMPLETE W DOPPLER/CF WO CONTRAST (09/11/2024 8:42 AM EXPERIMENTAL MECHANIC SPACECRAFT) LV EF 70-75 % CONS SCIMAGE Anatomical Region Laterality Modality Ultrasound 09/11/2024 8:10 AM EXPERIMENTAL MECHANIC SPACECRAFT Narrative 09/11/2024 11:22 AM EXPERIMENTAL MECHANIC SPACECRAFT [address] [place] [address] Echocardiogram Report Patient Name: RAO SANCHEZ : 1955 Study Date: 09/11/2024 8:10:43 AM Gender: M Tech: MICROBIOLOGICAL ANALYST Location: Echo Lab 1 [facility] Provider: KO SMITH Height(Cm): 183 BSA: 2.54 [...] By: Ko Smith MD 09/11/2024 11:22:09 AM EXPERIMENTAL MECHANIC SPACECRAFT Procedure Note Ko Smith MD - 09/11/[address] [address] Echocardiogram Report Patient Name: RAO SANCHEZ : 1955 Study Date: 09/11/2024 8:10:43 AM Gender: M Tech: HERLINDA Location: Echo Lab 1 Ref Provider: KO [...] By: Ko Smith MD 09/11/2024 11:22:09 AM EXPERIMENTAL MECHANIC SPACECRAFT Ko Smith MD CV ECHO PROCEDURES Final Result * Surgical pathology (08/25/2024 3:00 PM EXPERIMENTAL MECHANIC SPACECRAFT) Tissue specimen (specimen) (Polyp(s), colon/colorectal, esophageal, gastric) 08/25/2024 9:23 AM EXPERIMENTAL MECHANIC SPACECRAFT Narrative PATHOLOGY [facility] ([place]) - 08/26/2024 1:44 PM EXPERIMENTAL MECHANIC SPACECRAFT EPIC results best viewed via link to PDF [facility] Department of Pathology [address] [place] [address] Note to Patients: This report may contain [...] Final Report Patient Name: RAO SANCHEZ Address: [address] [address] Gender: M : 1955 (Age: 69) Service: Gastro Location: [facility] Hospital #: [id number] Patient Type: [facility] Taken: 08/25/2024 Received: 08/25/2024 Accessioned: 08/25/2024 [...] determined by the Surgical Pathology Department at [facility] as part of an ongoing associate quality engineer program and in compliance with federally mandated [...] characteristics determined by the Surgical Pathology Department [facility]. It has not been cleared or approved by the U. S. Food and Drug Administration. Note for decalcified specimens: This assay has not been validated on decalcified tissues. Results should be interpreted with caution given the possibility of false negativity on decalcified specimens Constantino Booth MD LAB PATHOLOGY ORDERABLES F inal Result PATHOLOGY [facility] ([place]) 1 [place], [place] [id number] * Colonoscopy (08/25/2024 8:12 AM EXPERIMENTAL MECHANIC SPACECRAFT) Anatomical Region Laterality Modality Other Narrative Procedure Note Constantino Booth MD - 08/25/2024 8:12 AM CST [facility] Patient Name: Rao Sanchez Procedure Date: 08/25/2024 8:12 AM Date of : 1955 Admit Type: Outpatient Age: 69 Gender: Male Attending MD: Constantino Booth M.D. Room: [facility] ENDOSCOPY ROOM 1 Note Status: Finalized Patient [...] under direct vision. The Pediatric Colonoscope [id number]-[id number] was introducedthrough the anus and advanced to [...] 8:12 AM Procedure Code(s): --- Professional --- 47944, Colonoscopy, flexible; with removal of tumor(s), polyp(s), or other lesion(s) by snare technique Diagnosis Code(s): --- Professional --- Z12.11, Encounter for screening for malignant neoplasm of colon K64.8, Other hemorrhoids D12.5, Benign neoplasm of sigmoid colon D12.4, Benign neoplasm of descending colon CPT copyright 2020 [employer]. All rights reserved. The codes documented in this report are preliminary and upon electronic installer reviewmay be revised to meet current compliance requirements. Recognized by the [employer] for promoting quality in endoscopy Constantino Booth MD ENDOSCOPY PROCEDURES Final Result * (ABNORMAL) PSA screen (08/05/2024 8:34 AM EXPERIMENTAL MECHANIC SPACECRAFT) PSA-Total 5.68(H) <=5.40 ng/mL Comment: Interpretive Data [...] data last revised 21. Testing performed by: [facility], [address] [place] [address]., [address] Blood 08/05/2024 8:34 AM EXPERIMENTAL MECHANIC SPACECRAFT 08/05/2024 12:39 PM EXPERIMENTAL MECHANIC SPACECRAFT us Julius Pelayo MD LAB BLOOD ORDERABLES Rachel l Result [facility] ([place]) 1 [facility] [place] [address] * eGFR (07/30/2024 8:17 AM EXPERIMENTAL MECHANIC SPACECRAFT) eGFR >90 >=60 mL/min/1. 73 m2 Comment: [...] was last reviewed 2021. Testing performed by: [facility], [address] [place] [address]., [address] Blood 07/30/2024 8:17 AM EXPERIMENTAL MECHANIC SPACECRAFT 07/30/2024 12:45 PM EXPERIMENTAL MECHANIC SPACECRAFT us Julius Pelayo MD LAB BLOOD ORDERABLES Rachel l Result [facility] ([place]) 1 [facility] [place] [address] * Differential, auto (07/30/2024 8:17 AM EXPERIMENTAL MECHANIC SPACECRAFT) Neutrophil abs 2.5 1.5 - 6.5 K/cumm Comment:Testing performed by : [facility], [address] [place] [address]., [address] Imm gran abs 0.0 0.0 - 0.1 K/cumm [facility] ([place]) Comment:Testing performed by : [address], [address] Lymphocyte abs 1.5 0.8 - 3.3 K/cumm [facility] ([place]) Comment:Testing performed by : [facility], [address] [place] [address], [address] Monocyte abs 0.6 0.2 - 0.8 K/cumm [facility] ([place]) Comment:Testing performed by : [address], [address] Eosinophil abs 0.2 0.0 - 0.5 K/cumm [facility] ([place]) Comment:Testing performed by : [address], [address] Basophil abs 0.1 0.0 - 0.1 K/cumm [facility] ([place]) Comment:Testing performed by : [address], [address] Neutrophil pct 51.9 % [facility] ([place]) Comment: Interpretive Data Percent cell count reference ranges are not reported, since discordance with absolute values may lead to misinterpretation of CBC data. Current Interpretive Data was last revised on 2017. Testing performed by: [address], [address] Imm gran pct 0.6 % [facility] ([place]) Comment: Interpretive Data Percent cell count reference ranges are not reported, since discordance with absolute values may lead to misinterpretation of CBC data. Current Interpretive Data was last revised on 2017. Testing performed by: [address], [address] Lymphocyte pct 30.0 % [facility] ([place]) Comment: Interpretive Data Percent cell count reference ranges are not reported, since discordance with absolute values may lead to misinterpretation of CBC data. Current Interpretive Data was last revised on 2017. Testing performed by: [facility], [address] [place] [address]., [address] Monocyte pct 13.0 % [facility] ([place]) Comment: Interpretive Data Percent cell count reference ranges are not reported, since discordance with absolute values may lead to misinterpretation of CBC data. Current Interpretive Data was last revised on 2017. Testing performed by: [facility], [address] [place] [address]., [address] Eosinophil pct 3.3 % [facility] ([place]) Comment: Interpretive Data Percent cell count reference ranges are not reported, since discordance with absolute values may lead to misinterpretation of CBC data. Current Interpretive Data was last revised on 2017. Testing performed by: [address] [address] Basophil pct 1.2 % [facility] ([place]) Comment: Interpretive Data Percent cell count reference ranges are not reported, since discordance with absolute values may lead to misinterpretation of CBC data. Current Interpretive Data was last revised on 2017. Testing performed by: [address] [address] Blood 07/30/2024 8:17 AM EXPERIMENTAL MECHANIC SPACECRAFT 07/30/2024 12:37 PM EXPERIMENTAL MECHANIC SPACECRAFT us Julius Pelayo MD LAB BLOOD ORDERABLES Rachel l Result [facility] ([place]) 1 [facility] Department [place] [address] * CBC with auto differential (07/30/2024 8:17 AM EXPERIMENTAL MECHANIC SPACECRAFT) WBC 4.8 3.8 - 9.9 K/cumm Comment:Testing performed by : [address] [address] Hgb 15.6 13.0 - 17.5 g/dL [facility] ([place]) Comment:Testing performed by : [address] [address] Hct 48.3 38.9 - 50.3 % [facility] ([place]) Comment:Testing performed by : [address], [address] Plt 157 150 - 400 K/cumm [facility] ([place]) Comment:Testing performed by : [address], [address] MPV 10.7 9.1 - 12.3 fL [facility] ([place]) Comment:Testing performed by : [address], [address] RBC 5.25 4.30 - 5.80 M/cumm [facility] ([place]) Comment:Testing performed by : [address], [address] MCV 92.0 81.3 - 96.4 fL [facility] ([place]) Comment:Testing performed by : [address], [address] MCH 29.7 27.1 - 33.3 pg [facility] ([place]) Comment:Testing performed by : [address], [address] MCHC 32.3 32.3 - 35.7 g/dL [facility] [facility] ([facility]) Comment:Testing performed by : [address], [address] RDW CV 13.4 11.1 - 14.9 % [facility] ([facility]) Comment:Testing performed by : [address], [address] RDW SD 45.4 35.7 - 48.1 fL [facility] ([facility]) Comment:Testing performed by : [address], [address] NRBC abs 0.00 0.00 - 0.01 K/cumm [facility] ([facility]) Comment:Testing performed by : [address], [address] Blood 07/30/2024 8:17 AM [employer] 07/30/2024 12:37 PM [employer] us Julius Pelayo MD LAB BLOOD ORDERABLES Rachel lin Result [facility] ([facility]) [facility] Department [place] [address] * (ABNORMAL) Lipid panel (07/30/2024 8:17 AM [employer]) Cholesterol 115 30 - 199 mg/dL Comment: [...] last revised on 2018. Testing performed by: [address] [address] Triglycerides 49 <=149 mg/dL [facility] CALZADA ([facility]) [...] last revised on 2018. Testing performed by: [facility], [address] [place] [address]., [id number] HDL 32(L) >=40 mg/dL [facility] Remy ([facility]) [...] last revised on 2018. Testing performed by: [address] [address] LDL, calculated 71 <=129 mg/dL LOBO CALZADA [...] NCEP Expert Panel. Circulation 2004;110:227 3. Kristian Lomeli et al. SHEEBA Cardiol. 2019November 12;5(5):540-548. doi: [email or web address] Current Interpretive Data was last revised on 2024. Testing performed by: [address] [address] Non-HDL Cholesterol 83 mg/dL [facility] CALZADA ([facility]) Comment: Interpretive Data [...] last revised on 2018. Testing performed by: [address] [address] Chol/HDL ratio 4 JASBIR CAL[facility]ADA ([facility]) Comment:Testing performed by : [facility], [address] [place] [address]., [id number] Blood 07/30/2024 8:17 AM [employer] 07/30/2024 12:37 PM [employer] Julius Pelayo MD LAB BLOOD ORDERABLES Rachel lin Result [facility] Department [place] [address] * Comprehensive metabolic panel (07/30/2024 8:17 AM EX[employer]) Sodium 140 135 - 145 mmol/L Comment:Testing performed by : [address] [address] Potassium, pl 4.8 3.3 - 4.9 mmol/L [facility] ([facility]) Comment:Testing performed by : [address], [address] Chloride 104 97 - 110 mmol/L [facility] ([facility]) Comment:Testing performed by : [facility], [address] [place] [address], [address] CO2 26 22 - 32 mmol/L [facility] ([facility]) Comment:Testing performed by : [address], [address] Anion gap 10 2 - 15 mmol/L [facility] ([facility]) Comment:Testing performed by : [address], [address] BUN 19 6 - 25 mg/dL [facility] ([facility]) Comment:Testing performed by : [address], [address] Creatinine 0.87 0.80 - 1.30 mg/dL [facility] ([facility]) Comment:Testing performed by : [address], [address] Glucose 109 70 - 199 mg/dL [facility] ([facility]) Comment: Interpretive Data Fasting glucose [...] was last revised 2022. Testing performed by: [facility], [address] [place] [address], [id number] Calcium 9.2 8.5 - 10.3 mg/dL [facility] ([facility]) Comment:Testing performed by : [facility], [address] [place] [address], [address] Bilirubin, total 1.1 0.1 - 1.2 mg/dL [facility] ([facility]) Comment:Testing performed by : [address], [address] Protein, pl 6.5 6.5 - 8.5 g/dL [facility] ([facility]) Comment:Testing performed by : [address], [address] Albumin 4.0 3.5 - 5.0 g/dL [facility] ([facility]) Comment:Testing performed by : [facility], [address] [place] [address], [address] Alk phos 98 40 - 130 Units/L [facility] ([facility]) Comment:Testing performed by : [facility], [address] [place] [address], [id number] ALT 21 7 - 55 Units/L [facility] ([facility]) Comment:Testing performed by : [address], [address] AST 27 10 - 50 Units/L [facility] ([facility]) Comment:Testing performed by : [address], [address] Blood 07/30/2024 8:17 AM EX[employer] 07/30/2024 12:37 PM [employer]PER[employer] us Julius Pelayo MD LAB BLOOD ORDERABLES Rachel lin Result [facility] ([facility]) [facility] Department [place] [address] from Last 3 Months Insurance MEDICARE [employer] MED[place]ARE [employer] MED[employer]ARE [employer] Advance Directives For more information, please contact: [phone] * Full Code (Latest Code Status on File) Date Activated Date Inactivated Comments 08/25/2024 8:19 AM 08/25/2024 2:23 PM * Full Code Date Activated Date Inactivated Comments 08/25/2024 8:19 AM 08/25/2024 8:19 AM * Full Code Date Activated Date Inactivated Comments 06/12/2022 5:48 PM 06/13/2022 7:37 PM * Full Code Date Activated Date Inactivated Comments 06/16/2021 11:38 AM 06/16/2021 6:49 PM Care Teams Client Analyst Relationship Specialty Start Date End [place] [address] PCP - General 01/18/11 Austen Natarajan NP [address] [place] [address] [place] [address] Nurse Practitioner Nurse Practitioner 06/13/22
== END 2024-10-21 11:36 | disposition home or self-care (01) ==
PROVIDERS: PCP Family Medicine; Visit Provider Urology
DX: C61 Malignant neoplasm of prostate (principal); Z19.1 Hormone sensitive malignancy status
CPT/HCPCS: 78815; A9596